=== PATIENT | female | born 1990 | race Caucasian/White ===

== ENCOUNTER 2017-01-14 17:32 | Emergency (ER) | payer MEDICAID ==
[2017-01-14] MEDS ORDERED: ONDANSETRON HCL IV 4 MG/2 ML VIAL IV ONE (17:54)
[2017-01-14] MEDS ORDERED: 0.9 % SODIUM CHLORIDE 1,000 ML BAG IV ONE (17:54)
--- NOTE | 2017-01-14 18:01 | Emergency Department Record ---
History of Present Illness - General Source: Patient, Family Mode of Arrival: Ambulatory Limitations: No limitations - History of Present Illness Initial Comments: 26 yo female presents not feeling well since Friday morning. She reports that she was out drinking Friday night. She did notice a mild cough that night. She woke in the morning with nausea, upset stomach, mid abdominal pain, and nausea. The pain goes across the abdomen at the level of the umbilicus. She has decreased appetite. The discomfort is greater on the right. It radiates to the back. No fevers. No diarrhea. She also reports a non productive cough during this time as well. She has pain with deep breathing but the pain is in the abdomen. No pain in the chest with deep inspiration. She is a smoker. No control. No blood in the stools. She has a history of cholecystectomy. She is 6 months post . MD Complaint: Abdominal pain Onset/Timin -: Days(s) Location: Epigastric, Periumbilical, LLQ, RLQ, Other (The pain is a band across the mid abdomen at the level of the umbilicus) Radiation: Other (bialteral sides) Migration to: Epigastric, LLQ, RLQ Severity: Moderate Quality: Sharp Consistency: Intermittent Improves With: Nothing Worsens With: Nothing Associated Symptoms: Denies other symptoms - Related Data LMP (females 10-50): Last week Patient : No <HAILEE SWENSON - Last Filed: 01/14/17 18:54> <Katarzyna Gauthier - Last Filed: 01/14/17 21:26> - General Chief Complaint: Abdominal Pain Stated Complaint: ABDOMEN PAIN Time Seen by Provider: 01/14/17 17:54 - Related Data Home Medications Medication Instructions Recorded Confirmed Last Taken Dextroamphetamine/Amphetamine 30 mg PO BID 01/14/17 01/14/17 01/14/17 [Adderall] Previous Rx's Medication Instructions Recorded Omeprazole [Prilosec] 20 mg PO DAILY #14 01/14/17 Allergies Allergy/AdvReac Type Severity Reaction Status Date / Time No Known Drug Allergies Allergy Verified 01/14/17 17:55 Travel Screening - Travel/Exposure Within Last 30 Days Have you traveled within the last 30 days?: No <HAILEE SWENSON - Last Filed: 01/14/17 18:54> Review of Systems Constitutional: Reports: Malaise. Denies: Chills, Fever Eyes: Denies: Eye discharge, Eye pain, Photophobia ENT: Denies: Congestion, Throat pain Respiratory: Reports: Cough, Wheezes. Denies: Dyspnea Cardiovascular: Reports: Chest pain (hurts to cough at times). Denies: Palpitations, Syncope Gastrointestinal: Reports: Abdominal pain, Nausea. Denies: Constipation, Diarrhea, Hematemesis, Hematochezia, Vomiting Genitourinary: Denies: Dysuria, Hematuria, Urgency Musculoskeletal: Denies: Arthralgia, Back pain, Myalgia, Neck pain Skin: Denies: Bruising, Change in color, Rash Neurological: Denies: Headache, Numbness, Weakness Psychiatric: Denies: Anxiety Hematological/Lymphatic: Denies: Blood Clots, Easy bleeding, Easy bruising, Swollen glands <HAILEE SWENSON - Last Filed: 01/14/17 18:54> Physical Exam - General General Appearance: Alert, Oriented x3, Cooperative, No acute distress Limitations: No limitations - Head Head exam: Normal inspection - Eye Eye exam: Normal appearance. negative: Conjunctival injection, Periorbital swelling - ENT ENT exam: Normal exam, Mucous membranes moist Ear exam: Normal external inspection Nasal Exam: Normal inspection Mouth exam: Normal external inspection - Neck Neck exam: Normal inspection - Respiratory Respiratory exam: Normal lung sounds bilaterally, Rhonchi (few scattered, otherwise clear non labored breathing) - Cardiovascular Cardiovascular Exam: Normal rhythm, Normal heart sounds, Tachycardia Peripheral Pulses: 2+: Radial (R), Radial (L) - GI/Abdominal GI/Abdominal exam: Soft, Tenderness (she is tender diffusely in the abdomen but increased on the right lateral to the umbilicus) - Rectal Rectal exam: Deferred - exam: Deferred - Extremities Extremities exam: Normal inspection - Back Back exam: Reports: CVA tenderness (R), CVA tenderness (L) - Neurological Neurological exam: Alert, Normal gait, Oriented X3 - Psychiatric Psychiatric exam: Normal affect, Normal mood - Skin Skin exam: Dry, Intact, Normal color, Warm <HAILEE SWENSON - Last Filed: 01/14/17 18:54> Course Vital Signs 01/14/17 17:44 Temperature 98.4 F Pulse Rate 131 H Respiratory 20 Rate Blood Pressure 144/83 Pulse Ox 99 - Reevaluation(s) Reevaluation #1: The URINE HCG was negative The WBC count on the CBC was 13 01/14/17 18:14 The UA is negative for any acute process 01/14/17 18:29 K is 3.1 Na is 133 Lipase is normal 01/14/17 18:49 The case was signed out to Dr Gauthier Please refer to her nose for CT and XR results and final disposition. 01/14/17 18:58 <HAILEE SWENSON - Last Filed: 01/14/17 18:54> Vital Signs 01/14/17 01/14/17 01/14/17 17:44 19:10 19:56 Temperature 98.4 F Pulse Rate 131 H Pulse Rate [ 121 H 117 H Pulse Ox Probe] Respiratory 20 18 20 Rate Blood Pressure 144/83 Blood Pressure 133/89 132/83 [Right Arm] Pulse Ox 99 100 117 H - Reevaluation(s) Reevaluation #2: 01/14/17 21:16 ct was neg except slightly enlarged spleen and slightly distended small bowel likely delayed emptying <Katarzyna Gauthier - Last Filed: 01/14/17 21:26> Medical Decision Making - Lab Data Result diagrams: 01/14/17 18:00 01/14/17 18:00 <HAILEE SWENSON - Last Filed: 01/14/17 18:54> - Lab Data Result diagrams: 01/14/17 18:00 01/14/17 18:00 Lab Results 01/14/17 01/14/17 01/14/17 Range/Units 18:00 18:00 18:00 WBC 13.3 H (4.2-12.2) K/uL RBC 3.98 (3.80-5.40) M/uL Hgb 11.7 (11.6-16.0) gm/dl Hct 34.9 L (35.0-47.0) % MCV 87.7 (81-97) fl MCH 29.4 (27-33) pg MCHC 33.5 (32-36) g/dl RDW 13.9 (11.5-14.5) % Plt Count 298 (130-400) K/uL MPV 9.5 (7.4-10.4) fl Neutrophils % 81.0 H (47-80) % Eosinophils % Not Reportable Basophils % Not Reportable Lymphocytes 14.0 L (16-45) % Monocytes 4.0 (0-9) % Platelet Estimate Normal (NORMAL) RBC Morphology Normal Eosinophil Count 1.0 (0-6) % Sodium 133 L (136-145) mmol/L Potassium 3.1 L (3.4-4.5) mmol/L Chloride 96 L (98-107) mmol/L Carbon Dioxide 25.0 (22-29) mmol/L Anion Gap 12.0 (7-16) BUN 13.5 (12.6-42.6) mg/dL Creatinine 0.7 (0.5-0.9) mg/dL Estimated GFR > 60 mL/min Random Glucose 92 (74-109) mg/dL Calcium 8.9 (8.6-10.0) mg/dL Total Bilirubin 0.50 (0.2-1.0) mg/dL AST 15 (10.0-35.0) U/L ALT 19 (<33) U/L Alkaline Phosphatase 139 H (35-104) U/L Total Protein 7.4 (6.6-8.7) g/dL Albumin 4.1 (4.0-5.0) g/dL Globulin 3.3 (1.4-4.8) gm/dL Albumin/Globulin Ratio 1.2 (1.1-1.8) Lipase 9 L (13-60) U/L Urine Color Yellow Urine Appearance Clear Urine pH 6.0 (5.0-8.0) Ur Specific [place] <= 1.005 (1.002-1.030) Urine Protein Negative (NEGATIVE) Urine Glucose (UA) Negative (NEGATIVE) Urine Ketones Negative (NEGATIVE) Urine Blood Negative (NEGATIVE) Urine Nitrite Negative (NEGATIVE) Urine Bilirubin Negative (NEGATIVE) Urine Urobilinogen 0.2 (0.20 - 1.00) E.U./dL Ur Leukocyte Esterase Negative (NEGATIVE) Urine HCG, Qual Negative (NEGATIVE) <Katarzyna Gauthier - Last Filed: 01/14/17 21:26> Disposition <HAILEE SWENSON - Last Filed: 01/14/17 18:54> Disposition: Discharge <Katarzyna Gauthier - Last Filed: 01/14/17 21:26> Clinical Impression: Acute abdomen, Cough Disposition: Home, Self-Care Condition: (1) Good Instructions: Abdominal Pain (ED) Additional Instructions: follow up with family doctor and with gi doctor. return sooner if worse. recheck in 24 hours if still having pain Prescriptions: Omeprazole [Prilosec] 20 mg PO DAILY #14 cap.dr Forms: Patient Portal Access Quality - Blood Pressure Screening Does Patient Have Any of the Following: No Blood Pressure Classification: Pre-Hypertensive BP Reading Systolic Measurement: 144 Diastolic Measurement: 83 Screening for High Blood Pressure: < Pre-Hypertensive BP, F/U Documented > [ G8950] <HAILEE SWENSON - Last Filed: 01/14/17 18:54> - Quality Measures Quality Measures: N/A - Blood Pressure Screening Does Patient Have Any of the Following: No Blood Pressure Classification: Pre-Hypertensive BP Reading Systolic Measurement: 144 Diastolic Measurement: 83 Screening for High Blood Pressure: < Pre-Hypertensive BP, F/U Documented > [ G8950] Pre-Hypertensive Follow-up Interventions: Follow-up with rescreen every year. <Katarzyna Gauthier - Last Filed: 01/14/17 21:26>
[2017-01-14 18:11] LABS: HCG,QUALITATIVE URINE NEGATIVE (NEGATIVE); URINE APPEARANCE CLEAR; URINE BILIRUBIN NEGATIVE (NEGATIVE); URINE BLOOD NEGATIVE (NEGATIVE); URINE COLOR YELLOW; URINE GLUCOSE (UA) NEGATIVE (NEGATIVE); URINE KETONE NEGATIVE (NEGATIVE); URINE LEUKOCYTE ESTERASE NEGATIVE (NEGATIVE); URINE NITRITE NEGATIVE (NEGATIVE); URINE PROTEIN NEGATIVE (NEGATIVE); URINE UROBILINOGEN 0.2 E.U./dL (0.20 - 1.00)
[2017-01-14 18:12] LABS: HEMATOCRIT 34.9 % (35.0-47.0); HEMOGLOBIN 11.7 gm/dl (11.6-16.0); MEAN CELL VOLUME 87.7 fl (81-97); MEAN CORPUSCULAR HEMOGLOBIN 29.4 pg (27-33); MEAN CORPUSCULAR HGB CONC 33.5 g/dl (32-36); MEAN PLATELET VOLUME 9.5 fl (7.4-10.4); PLATELET COUNT 298 K/uL (130-400); RED BLOOD COUNT 3.98 M/uL (3.80-5.40); RED CELL DISTRIBUTION WIDTH 13.9 % (11.5-14.5); WHITE BLOOD COUNT W/O DIFF 13.3 K/uL (4.2-12.2)
[2017-01-14 18:21] LABS: PLATELET ESTIMATE NORMAL (NORMAL)
[2017-01-14 18:30] LABS: ALB/GLOB RATIO 1.2 (1.1-1.8); ALBUMIN 4.1 g/dL (4.0-5.0); ALKALINE PHOSPHATASE 139 U/L (35-104); ALT/SGPT 19 U/L (<33); AST/SGOT 15 U/L (10.0-35.0); BLOOD UREA NITROGEN 13.5 mg/dL (12.6-42.6); CREATININE 0.7 mg/dL (0.5-0.9); EST GLOMERULAR FILTRATION RATE > 60 mL/min; GLUCOSE,RANDOM 92 mg/dL (74-109); LIPASE 9 U/L (13-60); TOTAL PROTEIN 7.4 g/dL (6.6-8.7)
[2017-01-14] MEDS ORDERED: SOD CHLOR 0.9% WITH KCL 40MEQ 40 MEQ/1,000 ML IV.SOLN IV ONE (18:57)
[2017-01-14] MEDS ORDERED: HYDROMORPHONE HCL 1MG/ML **SYRINGE IVP ONE ×2 (19:26→21:15)
[2017-01-14] MEDS ORDERED: MAGNESIUM HYDROXIDE/AL HYDROX 30 ML, LIDOCAINE VISC 2% 200 MG PO ONE ×2 (21:15)
--- NOTE | 2017-01-14 21:32 | Emergency Department Record ---
History of Present Illness - General Chief Complaint: Abdominal Pain Stated Complaint: ABDOMEN PAIN Time Seen by Provider: 01/14/17 17:54 Source: Patient, Family Mode of Arrival: Ambulatory Limitations: No limitations - History of Present Illness MD Complaint: Abdominal pain Onset/Timin -: Days(s) Location: Epigastric, Periumbilical, LLQ, RLQ, Other (The pain is a band across the mid abdomen at the level of the umbilicus) Radiation: Other (bialteral sides) Migration to: Epigastric, LLQ, RLQ Severity: Moderate Quality: Sharp Consistency: Intermittent Improves With: Nothing Worsens With: Nothing Associated Symptoms: Denies other symptoms - Related Data LMP (females 10-50): Last week Patient : No Home Medications Medication Instructions Recorded Confirmed Last Taken Dextroamphetamine/Amphetamine 30 mg PO BID 01/14/17 01/14/17 01/14/17 [Adderall] Previous Rx's Medication Instructions Recorded Hydrocodone/Acetaminophen [[place] 1 each PO Q6HR #10 tablet 01/14/17 5-325 Tablet] Omeprazole [Prilosec] 20 mg PO DAILY #14 cap. 01/14/17 Allergies Allergy/AdvReac Type Severity Reaction Status Date / Time No Known Drug Allergies Allergy Verified 01/14/17 17:55 Travel Screening - Travel/Exposure Within Last 30 Days Have you traveled within the last 30 days?: No Review of Systems Constitutional: Reports: Malaise. Denies: Chills, Fever Eyes: Denies: Eye discharge, Eye pain, Photophobia ENT: Denies: Congestion, Throat pain Respiratory: Reports: Cough, Wheezes. Denies: Dyspnea Cardiovascular: Reports: Chest pain (hurts to cough at times). Denies: Palpitations, Syncope Gastrointestinal: Reports: Abdominal pain, Nausea. Denies: Constipation, Diarrhea, Hematemesis, Hematochezia, Vomiting Genitourinary: Denies: Dysuria, Hematuria, Urgency Musculoskeletal: Denies: Arthralgia, Back pain, Myalgia, Neck pain Skin: Denies: Bruising, Change in color, Rash Neurological: Denies: Headache, Numbness, Weakness Psychiatric: Denies: Anxiety Hematological/Lymphatic: Denies: Blood Clots, Easy bleeding, Easy bruising, Swollen glands Past Medical History - SOCIAL HISTORY Smoking Status: Current every day smoker Alcohol Use: Occasional Drug Use: None - RESPIRATORY Hx Respiratory Disorders: No - CARDIOVASCULAR Hx Cardio Disorders: No - NEURO Hx Neuro Disorders: No - GI Hx GI Disorders: No - Hx Genitourinary Disorders: No - ENDOCRINE Hx Endocrine Disorders: No - MUSCULOSKELETAL Hx Musculoskeletal Disorders: No - PSYCH Hx Psych Problems: Yes Comment:: adhd - HEMATOLOGY/ONCOLOGY Hx Hematology/Oncology Disorders: No Family Medical History Any Significant Family History?: No Physical Exam - General Limitations: No limitations Course Vital Signs 01/14/17 01/14/17 01/14/17 17:44 19:10 19:56 Temperature 98.4 F Pulse Rate 131 H Pulse Rate [ 121 H 117 H Pulse Ox Probe] Respiratory 20 18 20 Rate Blood Pressure 144/83 Blood Pressure 133/89 132/83 [Right Arm] Pulse Ox 99 100 117 H - Reevaluation(s) Reevaluation #1: 01/14/17 21:29 pt just had a large bout of diarrhea. Medical Decision Making - Lab Data Result diagrams: 01/14/17 18:00 01/14/17 18:00 Lab Results 01/14/17 01/14/17 01/14/17 Range/Units 18:00 18:00 18:00 WBC 13.3 H (4.2-12.2) K/uL RBC 3.98 (3.80-5.40) M/uL Hgb 11.7 (11.6-16.0) gm/dl Hct 34.9 L (35.0-47.0) % MCV 87.7 (81-97) fl MCH 29.4 (27-33) pg MCHC 33.5 (32-36) g/dl RDW 13.9 (11.5-14.5) % Plt Count 298 (130-400) K/uL MPV 9.5 (7.4-10.4) fl Neutrophils % 81.0 H (47-80) % Eosinophils % Not Reportable Basophils % Not Reportable Lymphocytes 14.0 L (16-45) % Monocytes 4.0 (0-9) % Platelet Estimate Normal (NORMAL) RBC Morphology Normal Eosinophil Count 1.0 (0-6) % Sodium 133 L (136-145) mmol/L Potassium 3.1 L (3.4-4.5) mmol/L Chloride 96 L (98-107) mmol/L Carbon Dioxide 25.0 (22-29) mmol/L Anion Gap 12.0 (7-16) BUN 13.5 (12.6-42.6) mg/dL Creatinine 0.7 (0.5-0.9) mg/dL Estimated GFR > 60 mL/min Random Glucose 92 (74-109) mg/dL Calcium 8.9 (8.6-10.0) mg/dL Total Bilirubin 0.50 (0.2-1.0) mg/dL AST 15 (10.0-35.0) U/L ALT 19 (<33) U/L Alkaline Phosphatase 139 H (35-104) U/L Total Protein 7.4 (6.6-8.7) g/dL Albumin 4.1 (4.0-5.0) g/dL Globulin 3.3 (1.4-4.8) gm/dL Albumin/Globulin Ratio 1.2 (1.1-1.8) Lipase 9 L (13-60) U/L Urine Color Yellow Urine Appearance Clear Urine pH 6.0 (5.0-8.0) Ur Specific [place] <= 1.005 (1.002-1.030) Urine Protein Negative (NEGATIVE) Urine Glucose (UA) Negative (NEGATIVE) Urine Ketones Negative (NEGATIVE) Urine Blood Negative (NEGATIVE) Urine Nitrite Negative (NEGATIVE) Urine Bilirubin Negative (NEGATIVE) Urine Urobilinogen 0.2 (0.20 - 1.00) E.U./dL Ur Leukocyte Esterase Negative (NEGATIVE) Urine HCG, Qual Negative (NEGATIVE) Disposition Disposition: Discharge Clinical Impression: Acute abdomen, Cough Disposition: Home, Self-Care Condition: (1) Good Instructions: Abdominal Pain (ED) Additional Instructions: follow up with family doctor and with gi doctor. return sooner if worse. recheck in 24 hours if still having pain Prescriptions: Hydrocodone/Acetaminophen [[place] 5-325 Tablet] 1 each PO Q6HR #10 tablet Omeprazole [Prilosec] 20 mg PO DAILY #14 cap. Forms: Patient Portal Access Quality - Quality Measures Quality Measures: N/A - Blood Pressure Screening Does Patient Have Any of the Following: No Blood Pressure Classification: Pre-Hypertensive BP Reading Systolic Measurement: 144 Diastolic Measurement: 83 Screening for High Blood Pressure: < Pre-Hypertensive BP, F/U Documented > [ G8950] Pre-Hypertensive Follow-up Interventions: Follow-up with rescreen every year.
--- NOTE | 2017-01-15 12:28 | RADIOLOGY REPORT ---
EXAM: CHEST, TWO VIEWS HISTORY: PAIN IN LUNGS WHEN SHE TAKES A DEEP BREATH OR COUGHS. TECHNIQUE: PA and lateral views of the chest were obtained. Comparison: None. FINDINGS: The heart size is normal. There appears to be a right cervical rib present. No acute infiltrate is seen and no pleural effusion or pneumothorax evident. Mild spurring in the spine. IMPRESSION: MILD SPURRING IN THE SPINE. RIGHT CERVICAL RIB. NO ACUTE INFILTRATE EVIDENT. JOB NUMBER: [id number] MTDD
--- NOTE | 2017-01-15 13:12 | CT SCAN REPORT ---
EXAM: EMERGENCY CT OF THE ABDOMEN AND PELVIS WITH CONTRAST HISTORY: RIGHT SIDED ABDOMINAL PAIN, CRAMPING WHEN SHE EATS. CHOLECYSTECTOMY. TECHNIQUE: Axial CT scan of the abdomen and pelvis was obtained following both oral and IV contrast administration utilizing a dose of 100 ml of Omnipaque 300 for the IV contrast. Comparison: None. FINDINGS: Surgical clips in the gallbladder fossa consistent with cholecystectomy. No definite hepatic or splenic mass identified. Generous sized spleen measuring about 14.4 cm in AP x 8.4 cm in transverse diameters and with a craniocaudal length of about 11 cm. No definite adrenal or pancreatic mass identified and no renal mass seen on either side. Oral contrast given has passed throughout the small bowel well into the colon with no small bowel obstruction evident. No appendicitis identified. There are some loops of small bowel that have a slightly thick walled appearance, but these loops appear relatively nondistended and this may simply be due to the incomplete distention. Minor linear fibrosis or discoid atelectasis in the right middle lobe anteriorly. No free intraperitoneal air or free intraperitoneal fluid evident. Small periumbilical anterior abdominal wall hernia containing adipose tissue, but no bowel. IMPRESSION: 1. POSTOP CHOLECYSTECTOMY. 2. SOMEWHAT GENEROUS SIZED SPLEEN WITH NO FOCAL SPLENIC MASS EVIDENT. 3. NO APPENDICITIS EVIDENT. NO FREE INTRAPERITONEAL AIR OR FREE INTRAPERITONEAL FLUID EVIDENT. 4. SMALL PERIUMBILICAL ANTERIOR ABDOMINAL WALL HERNIA CONTAINING ADIPOSE TISSUE , BUT NO BOWEL. 5. SOME SMALL BOWEL LOOPS IN THE RIGHT LOWER QUADRANT HAVE A MILDLY THICK WALLED APPEARANCE, BUT THIS MAY SIMPLY BE DUE TO INCOMPLETELY DISTENTION. IF THERE IS A STRONG CLINICAL SUSPICION OF INFLAMMATORY BOWEL DISEASE SUCH CROHN 'S DISEASE, FOLLOW-UP NONEMERGENT CT ENTEROGRAPHY MAY BE USEFUL. JOB NUMBER: [id number] [facility]
== END 2017-01-14 22:05 | disposition home or self-care (01) ==
LOC: ER 17:32
DX: R10.0 Acute abdomen (principal); R19.7 Diarrhea, unspecified; R11.0 Nausea; R05 Cough
CPT/HCPCS: 99284 ×2; 96376; 96374; 96375; 83690; 80053; 81003; 81025; 85027; 71020; 74177; Q9967; J2405; J1170; J7030